=== PATIENT | female | born 1970 | race American Indian/Alaskan Native ===

== ENCOUNTER 2018-10-30 19:43 | Emergency (ER) | payer MEDICAID, OTHER ==
[2018-10-30 20:05] VITALS: BMI 32.9
[2018-10-30 20:18] VITALS: O2SAT 100
[2018-10-30 20:53] VITALS: TEMP 97.8
[2018-10-30 22:33] LABS: BASO # 0.02 K/mm3 (0.0-2.0); BASO % 0.2 % (0.0-3.0); EOS % 0.1 % (1.5-5.0); HEMOGLOBIN 14.3 g/dL (12.0-16.0); LYMPH # 1.4 (1.2-3.4); LYMPH % 16.7 % (22.0-35.0); MEAN CELL VOLUME 83.3 fl (80.0-105.0); MEAN CORPUSCULAR HEMOGLOBIN 28.1 pg (25.0-35.0); MEAN CORPUSCULAR HGB CONC 33.7 g/dl (31.0-37.0); MEAN PLATELET VOLUME 10.1 fl (7.0-11.0); MONO # 0.6 (0.1-0.6); MONO % 7.1 % (1.0-6.0); RBC 5.09 10^6/uL (3.5-6.1); RED CELL DISTRIBUTION WIDTH 15.8 % (11.5-14.5); URINE BILIRUBIN NEGATIVE (NEGATIVE); URINE BLOOD MODERATE (NEGATIVE); URINE GLUCOSE (UA) NEGATIVE (NEGATIVE); WHITE BLOOD COUNT 8.5 10^3/uL (4.5-11.0)
[2018-10-30 22:34] LABS: URINE LEUKOCYTE ESTERASE NEGATIVE Leu/uL (NEGATIVE); URINE PROTEIN NEGATIVE mg/dL (<30 mg/dL); URINE UROBILINOGEN 0.2 E.U./dL (<1 E.U./dL)
[2018-10-30 22:35] LABS: ALB/GLOB RATIO 1.2 (1.1-1.8); ALBUMIN 4.7 g/dL (3.0-4.8); AST/SGOT 22 U/L (14-36); BLOOD UREA NITROGEN 16 mg/dL (7-21); CALCIUM 10.7 mg/dL (8.4-10.5); GFR NON-AFRICAN AMERICAN > 60; LIPASE 43 U/L (23-300)
[2018-10-30 22:36] LABS: INR 1.03; PARTIAL THROMBOPLASTIN TIME 35.7 Seconds (26.9-38.3); PROTHROMBIN TIME 11.4 SECONDS (9.4-12.5)
[2018-10-30 22:38] LABS: ALT/SGPT < 6 U/L (7-56); URINE APPEARANCE CLEAR (CLEAR); URINE COLOR YELLOW (YELLOW)
[2018-10-30] MEDS ORDERED: Iohexol 350 MG/100 ML VIAL ONE (22:44)
[2018-10-30 22:46] LABS: TROPONIN I < 0.01 ng/mL
[2018-10-30 22:47] LABS: URINE RBC 25 - 30 /hpf (0-2)
--- NOTE | 2018-10-30 22:57 | ED PDOC ---
Arrival/HPI - General Chief Complaint: Abdominal Pain Time Seen by Provider: 10/30/18 19:52 Historian: Patient - History of Present Illness Narrative History of Present Illness (Text): 10/30/18 22:50 48 year old female, with past medical history of hypertension, COPD, anemia, and fibroid uterus in abdomen presents to emergency department with worsening of pain today. Patient states her chronic abdominal pain from fibroid uterus worsened today with nausea and chronic chest pain worsened today with shortness of breath. Patient also notes she wants to check her numbers for her anemia. Patient denies any fever, cough, nausea, vomiting, diarrhea, or urinary symptoms. Patient states she does not have a pmd. Time/Duration: Other (today ) Symptom Onset: Gradual Symptom Course: Unchanged Activities at Onset: Light Context: Home Past Medical History - Provider Review Nursing Documentation Reviewed: Yes - Infectious Disease Hx of Infectious Diseases: None - Cardiac Hx Hypertension: Yes - Pulmonary Hx Respiratory Disorders: Yes Hx Asthma: Yes Other/Comment: "lung nodules" - Neurological HX Cerebrovascular Accident: No Hx Seizures: No - Endocrine/Metabolic Hx Hypothyroidism: Yes - Hematological/Oncological Hx Cancer: No - Musculoskeletal/Rheumatological Hx Arthritis: Yes - Genitourinary/Gynecological Hx Sexually Transmitted Diseases: No - Psychiatric Hx Anxiety: Yes Hx Bipolar Disorder: Yes Hx Depression: Yes Hx Substance Use: No - Anesthesia Hx Anesthesia: No Hx Anesthesia Reactions: No Hx Malignant Hyperthermia: No Family/Social History - Physician Review Nursing Documentation Reviewed: Yes Family/Social History: Unknown Family HX Smoking Status: Unknown If Ever Smoked Hx Alcohol Use: No Hx Substance Use: No Allergies/Home Meds Allergies/Adverse Reactions: Allergies ibuprofen Allergy (Verified 11/21/15 20:10) Home Medications: Home Meds Medication Instructions Recorded Confirmed ALPRAZolam [Xanax] 1 mg PO BID 06/12/16 10/30/18 Albuterol HFA [Ventolin HFA 90 0.09 mg IH DAILY 06/12/16 10/30/18 mcg/actuation (8 g)] Losartan/Hydrochlorothiazide 1 each PO DAILY 06/12/16 10/30/18 [Losartan-Hctz 100-25 mg Tab] amLODIPine [Norvasc] 10 mg PO DAILY 06/12/16 10/30/18 Review of Systems - Physician Review All systems were reviewed & negative as marked: Yes - Review of Systems Constitutional: absent: Fevers Respiratory: SOB. absent: Cough Cardiovascular: Chest Pain Gastrointestinal: Abdominal Pain, Nausea. absent: Diarrhea Genitourinary Female: absent: Frequency, Hematuria, Urine Output Changes Musculoskeletal: absent: Back Pain, Neck Pain Skin: absent: Rash Neurological: absent: Headache, Dizziness Physical Exam Vital Signs Reviewed: Yes Vital Signs Temp Pulse Resp BP Pulse Ox 10/30/18 21:27 61 196/134 H 10/30/18 20:53 97.8 F 55 L 20 206/133 H 100 10/30/18 20:17 97.0 F L 65 18 201/108 H 100 Temperature: Afebrile Blood Pressure: Normal Pulse: Regular Respiratory Rate: Normal Appearance: Positive for: Well-Appearing, Non-Toxic, Comfortable, Other (patient is laying in bed comfortably) Pain Distress: None Mental Status: Positive for: Alert and Oriented X 3 - Systems Exam Head: Present: Atraumatic, Normocephalic Pupils: Present: PERRL Extroacular Muscles: Present: EOMI Conjunctiva: Present: Normal Mouth: Present: Moist Mucous Membranes Neck: Present: Normal Range of Motion Respiratory/Chest: Present: Clear to Auscultation, Good Air Exchange. No: Respiratory Distress, Accessory Muscle Use Cardiovascular: Present: Regular Rate and Rhythm, Normal S1, S2. No: Murmurs Abdomen: Present: Other (soft ). No: Tenderness, Distention, Peritoneal Signs, Rebound, Guarding, Mass/Organomegaly Back: Present: Normal Inspection Upper Extremity: Present: Normal Inspection. No: Cyanosis, Edema Lower Extremity: Present: Normal Inspection. No: Edema Neurological: Present: GCS=15, CN II-XII Intact, Speech Normal Skin: Present: Warm, Dry, Normal Color. No: Rashes Psychiatric: Present: Alert, Oriented x 3, Normal Insight, Normal Concentration Medical Decision Making ED Course and Treatment: 10/30/18 22:58 Impression: 48 year old female presents to emergency department with complaints of worsening chest pain and abdominal pain since earlier today. Plan: -- CT abdomen/pelvis -- EKG -- Labs -- Chest X-ray -- Urinalysis -- clonidine PO -- Reassess and disposition Prior Visits: Notes and results from previous visits were reviewed. Progress Notes: EKG : SB at 51 bpm. CXR : NAD. Labs reviewed : cbc wnl, trop (-), LFTs wnl, ua : +ketones, +blood. 10/30/18 23:49 CT abdomen/pelvis, reviewed by radiologist: IMPRESSION: 1. Findings compatible with jejunitis, left keo-colitis/proctitis. 2. 4.5 x 4.5 cm lobulated heterogeneous mass located in the left adnexa, likely ovarian in origin. Follow up with MRI pre/post contrast is recommended. 3. Small umbilical hernia containing fat. Electronically signed on Oct 30, 2018 11:49:53 PM EDT by: Hever Jensen M.D., KELLY Certified By [facility] Fellowship Trained MRI and CT Specialist On re-evaluation, patient reports improvement of symptoms, denies any chest pain or abdominal pain. On exam, patient remains AAOx3, in no acute distress, laying in bed comfortably. Abdomen soft, non-tender, no guarding, no rebound. VS: P 59 BP 173/97 R 18 O2sat 100%RA Diagnostic results d/w the patient in great detail. Diagnosis of colitis d/w the patient. Cipro and flagyl IV ordered. Based on history, exam and diagnostic results, plan will be for outpatient follow up. Patient feels comfortable going home and is requesting for refills of her HTN, asthma, and anxiety medication. Patient instructed to follow-up with pmd or referral provided in 1-2 days without fail. Advised to take medication as prescribed. Return to the emergency room at any time for any new or worsening symptoms. Patient states she fully agrees with and understands discharge instructions. States that she agrees with the plan and disposition. Verbalized and repeated discharge instructions and plan. I have given the patient opportunity to ask any additional questions. - Lab Interpretations Lab Results: PT 11.4 SECONDS (9.4-12.5) 10/30/18 22:10 INR 1.03 10/30/18 22:10 APTT 35.7 Seconds (26.9-38.3) 10/30/18 22:10 Troponin I < 0.01 ng/mL 10/30/18 22:10 Total Bilirubin 0.6 mg/dL (0.2-1.3) 10/30/18 22:10 AST 22 U/L (14-36) 10/30/18 22:10 ALT < 6 U/L (7-56) L 10/30/18 22:10 Alkaline Phosphatase 111 U/L (38-126) 10/30/18 22:10 Total Protein 8.6 g/dL (5.8-8.3) H 10/30/18 22:10 Albumin 4.7 g/dL (3.0-4.8) 10/30/18 22:10 Globulin 3.9 gm/dL 10/30/18 22:10 Albumin/Globulin Ratio 1.2 (1.1-1.8) 10/30/18 22:10 Lipase 43 U/L (23-300) 10/30/18 22:10 Urine Color Yellow (YELLOW) 10/30/18 22:10 Urine Appearance Clear (CLEAR) 10/30/18 22:10 Urine pH 6.0 (4.7-8.0) 10/30/18 22:10 Ur Specific [place] >= 1.030 (1.005-1.035) 10/30/18 22:10 Urine Protein Negative mg/dL (<30 mg/dL) 10/30/18 22:10 Urine Glucose (UA) Negative mg/dL (NEGATIVE) 10/30/18 22:10 Urine Ketones 15 mg/dL (NEGATIVE) H 10/30/18 22:10 Urine Blood Moderate (NEGATIVE) H 10/30/18 22:10 Urine Nitrate Negative (NEGATIVE) 10/30/18 22:10 Urine Bilirubin Negative (NEGATIVE) 10/30/18 22:10 Urine Urobilinogen 0.2 E.U./dL (<1 E.U./dL) 10/30/18 22:10 Ur Leukocyte Esterase Negative Santino/uL (NEGATIVE) 10/30/18 22:10 Urine RBC 25 - 30 /hpf (0-2) H 10/30/18 22:10 Urine WBC 2 - 5 /hpf (0-6) 10/30/18 22:10 Ur Epithelial Cells 3 - 4 /hpf (0-5) 10/30/18 22:10 - RAD Interpretation Radiology Orders: 10/30/18 20:25 CHEST PORTABLE [RAD] Stat 10/30/18 21:26 ABD & PELVIS IV CONTRAST ONLY [CT] Stat - Medication Orders Current Medication Orders: Discontinued Medications Clonidine HCl (Catapres) 0.2 mg PO STAT STA Stop: 10/30/18 21:28 Last Admin: 10/30/18 21:27 Dose: 0.2 mg MAR Pulse and Blood Pressure Document 10/30/18 21:27 (Rec: 10/30/18 22:03 [id number]) Pulse Pulse Rate (60-90) 61 Blood Pressure Blood Pressure (100/60-150/90) 196/134 - PA / INTERACTIVE MEDIA PROJECT MANAGER / Resident Statement MD/DO has reviewed & agrees with the documentation as recorded. - Scribe Statement The provider has reviewed the documentation as recorded by the Scribe Yariel Shoemaker All medical record entries made by the Scribe were at my direction and personally dictated by me. I have reviewed the chart and agree that the record accurately reflects my personal performance of the history, physical exam, medical decision making, and the department course for this patient. I have also personally directed, reviewed, and agree with the discharge instructions and disposition. Disposition/Present on Arrival - Present on Arrival Any Indicators Present on Arrival: No History of DVT/PE: No History of Uncontrolled Diabetes: No Urinary Catheter: No History of Decub. Ulcer: No History Surgical Site Infection Following: None - Disposition Have Diagnosis and Disposition been Completed?: Yes Diagnosis: Abdominal pain, Chest pain, Colitis Disposition: HOME/ ROUTINE Disposition Time: 01:00 Patient Plan: Discharge Patient Problems: Current Active Problems Problem Status Onset Abdominal pain Acute Chest pain Acute Colitis Acute Condition: STABLE Discharge Instructions (ExitCare): Colitis, Acute Abdomen (Belly Pain), Adult (DC), Chest Pain (DC), Chest Pain (ED) Additional Instructions: Thank you for letting us take care of you today. You were treated for abdominal pain, chest pain, colitis. The emergency medical care you received today was directed at your acute symptoms. If you were prescribed any medication, please fill it and take as directed. It may take several days for your symptoms to resolve. Return to the Emergency Department if your symptoms worsen, do not improve, or if you have any other problems. Please contact your doctor in 2 days for re-evaluation and follow up / or call one of the physicians/clinics you have been referred to that are listed on the Patient Visit Information form that is included in your discharge packet. Bring any paperwork you were given at discharge with you along with any medications you are taking to your follow up visit. Our treatment cannot replace ongoing medical care by a primary care provider (PCP) outside of the emergency department. Thank you for allowing the [facility] team to be part of your care today. Follow up CT results with your pmd or referral provided. CT abdomen/pelvis, reviewed by radiologist: IMPRESSION: 1. Findings compatible with jejunitis, left keo-colitis/proctitis. 2. 4.5 x 4.5 cm lobulated heterogeneous mass located in the left adnexa, likely ovarian in origin. Follow up with MRI pre/post contrast is recommended. 3. Small umbilical hernia containing fat. Prescriptions: Albuterol HFA [Ventolin HFA 90 mcg/actuation (8 g)] 2 puff IH [id number] #1 puff ALPRAZolam [Xanax] 1 mg PO BID PRN #10 tab PRN Reason: Anxiety amLODIPine [Norvasc] 10 mg PO DAILY #30 tab Ciprofloxacin [Cipro] 500 mg PO BID #14 tab Losartan/Hydrochlorothiazide [Losartan-Hctz 100-25 mg Tab] 1 each PO DAILY #30 tablet metroNIDAZOLE [Flagyl] 500 mg PO TID #21 tab Referrals: Noelle Mazariegos MD [Primary Care Provider] - Follow up with primary [facility] [Outside] - Follow up with primary Koki Villegas MD [Staff Provider] - Follow up with primary Forms: [employer] (Syriac)
[2018-10-30 23:00] VITALS: BP 173/97; PULSE 59; RESP 18
[2018-10-31] MEDS ORDERED: Ciprofloxacin 400mg/200ml D5W 400 MG/200 ML BAG IVPB STA (00:40)
[2018-10-31] MEDS ORDERED: metroNIDAZOLE IV 500 mg/100 ml 500 MG/100 ML BAG IVPB STA (00:40)
--- NOTE | 2018-10-31 08:18 | CT ---
Date of service: 10/30/2018 PROCEDURE: CT Abdomen and Pelvis with contrast HISTORY: Is pain, h/o fibroid COMPARISON: None. TECHNIQUE: Intravenous contrast dose: 100 cc Omnipaque 350. Radiation dose: Total exam DLP = 147.56 mGy-cm. This CT exam was performed using one or more of the following dose reduction techniques: Automated exposure control, adjustment of the mA and/or kV according to patient size, and/or use of iterative reconstruction technique. FINDINGS: LOWER THORAX: Unremarkable. LIVER: Unremarkable. No gross lesion or ductal dilatation. GALLBLADDER AND BILE DUCTS: Unremarkable. PANCREAS: Unremarkable. No gross lesion or ductal dilatation. SPLEEN: Unremarkable. ADRENALS: Unremarkable. No mass. KIDNEYS AND URETERS: Unremarkable. No hydronephrosis. No solid mass. VASCULATURE: Unremarkable. No aortic aneurysm. Atherosclerotic calcification and mural plaque present. Findings are seen throughout the aorta which is non aneurysmal. BOWEL: Dilated proximal small bowel, the findings suggestive of either ileus or early/incomplete obstruction. No visible point of obstruction common no obstructing lesion common no evidence of intussusception. Fecal impaction, constipation without mechanical obstruction. APPENDIX: Normal appendix. PERITONEUM: Unremarkable. No free fluid. No free air. LYMPH NODES: Unremarkable. No enlarged lymph nodes. BLADDER: Unremarkable. REPRODUCTIVE: Mildly enlarged uterus with multiple calcified fibroids. BONES: No acute fracture. OTHER FINDINGS: None. IMPRESSION: Dilated proximal small bowel, findings suggest ileus. Early/incomplete small bowel obstruction should also be considered. Additional benign and/or incidental findings described above. Concordant findings (preliminary report) provided by [facility].
--- NOTE | 2018-10-31 09:02 | CARD ---
APPROVED REPORT Date of service: 10/30/2018 EKG Measurement Heart [id number] <Conclusion> Sinus bradycardia Possible Left atrial enlargement Borderline ECG
--- NOTE | 2018-10-31 11:57 | RAD ---
Date of service: 10/30/2018 HISTORY: Abdominal pain. COMPARISON: No prior. FINDINGS: LUNGS: No active pulmonary disease. PLEURA: No significant pleural effusion identified, no pneumothorax apparent. CARDIOVASCULAR: No atherosclerotic calcification present Normal. OSSEOUS STRUCTURES: No significant abnormalities. VISUALIZED UPPER ABDOMEN: Normal. OTHER FINDINGS: None. IMPRESSION: No active disease.
== END 2018-10-31 03:31 | disposition home or self-care (01) ==
LOC: ED 19:43
DX: K52.9 Noninfective gastroenteritis and colitis, unspecified (principal); R07.9 Chest pain, unspecified; I10 Essential (primary) hypertension; D64.9 Anemia, unspecified
CPT/HCPCS: 71045; 74177; 80053; 81001; 81025; 83690; 83735; 84484; 85025; 85610; 85730; 87086; 93005; 96374; 96375; 99283; J0744; Q9967